=== PATIENT | male | born 1985 | race Caucasian/White ===

== ENCOUNTER 2017-04-17 13:36 | Emergency (ER) | payer OTHER ==
[~2017-04-17] VITALS: Ht 182.9 cm; Wt 140.6 kg
--- NOTE | 2017-04-17 14:06 | ED CARDIAC/CP/PALPITATIONS ---
History of Present Illness General Chief Complaint: Chest Pain Stated Complaint: PER PT "INTERMITTENT CHEST PAIN" Source: patient, old records Exam Limitations: no limitations Vital Signs & Intake/Output Vital Signs & Intake/Output ED Intake and Output 04/18 0000 04/17 1200 Intake Total 0 Output Total Balance 0 Intake, Oral 0 Patient 310 lb Weight Weight Reported by Patient Measurement Method Allergies Coded Allergies: No Known Allergies (04/17/17) Reconcile Medications No Known Home Medications Triage Note: PT TO ED FOR INTERMITTENT CP SINCE SATURDAY, DESCRIBES PAIN "SHARP, SHORT BURSTS OF A BURNING PAIN" PT DESCRIBES PAIN ON THE R SIDE OF HIS CHEST. NO ASSOCIATED SOB OR DIZZINESS. REPORTING HE IS UNABLE TO IDENTIFY IF ANYTHING MAKES PAIN BETTER OR WORSE. Triage Nurses Notes Reviewed? 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 He does not smoke he denies drug use he reports to drinking socially however nothing recently he's been taking Advil however is not sure if it helped. No headache vision changes dyspnea abdominal pain nausea vomiting. No family history of cardiac disease. He does not take any medication on a regular basis no recent immobility. The patient denies any symptoms at this time (HERNÁN RINCON) Past History Travel History Traveled to [place] past 21 day No Medical History Any Pertinent Medical History? none Neurological: NONE EENT: NONE Cardiovascular: NONE Respiratory: NONE Gastrointestinal: NONE Hepatic: NONE Renal: NONE Musculoskeletal: NONE Psychiatric: NONE Endocrine: NONE Blood Disorders: NONE Cancer(s): NONE Surgical History Surgical History: none Psychosocial History What is your primary language Portuguese Tobacco Use: Never used ETOH Use: occasional use Illicit Drug Use: denies illicit drug use Family History Hx Contributory? No (HERNÁN RINCON) Review of Systems Review of Systems Constitutional: Reports: see HPI. All Other Systems: Reviewed and Negative Comments Review of systems: See HPI, All other systems negative. Constitutional, no chills no fever, no malaise HEENT: No visual changes no sore throat no congestion Cardiovascular: chest pain , no palpitation , no orthopnea Skin: no rashes, no change in skin Respiratory: No dyspnea no cough no sputum no hemoptysis GI: No nausea no vomiting, no diarrhea, : No dysuria Muscle skeletal: No joint pain, no back pain, no neck pain, Neurologic:, no headache Psych: No stress Heme/endocrine: No bruising Immunology: No lymphadenopathy (HERNÁN RINCON) Physical Exam Physical Exam General Appearance: well developed/nourished, no apparent distress, alert, awake Cardiovascular: regular rate/rhythm Comments: Well-developed well-nourished person in no acute distress HEENT: Normal EENT exam; PERRL, EOMI, HEAD is atraumatic. moist mucous membranes. Neck: Supple,normal range of motion Back: Nontender, no CVA tenderness. Full range of motion Cardiovascular: Regular rate and rhythms no murmurs rubs Respiratory: Chest nontender.There were no bony deformities, no asymmetry. No respiratory distress. Patient speaking in full complete sentences. Breath sounds clear to auscultation bilaterally: NO W/R/R Abdomen: Soft, nontender nondistended, obese Extremity: No edema, full range of motion of extremitieS Neuro: Alert oriented x3, motor sensory normal. There were no obvious focal neurologic abnormalities. Skin: No appreciable rash on exposed skin, skin is warm and dry. Psych: Mood and affect is normal, memory and judgment is normal. Core Measures ACS in differential dx? Yes Severe Sepsis Present: No Septic Shock Present: No (HERNÁN RINCON) Progress Differential Diagnosis: AMI, aortic dissection, cholecystitis, CHF/pulm edema, costochondritis, musculoskeletal pain, myocarditis, pancreatitis, pericarditis, pneumonia, pneumothorax, PSVT, pulmonary embolism, PVCs/PACs, respiratory failure, unstable angina Initial ED EKG: none (HERNÁN RINCON) Plan of Care: Orders Procedure Date/time Status TROPONIN LEVEL 04/17 1346 Complete COMPREHENSIVE METABOLIC PANEL 04/17 1346 Complete CBC WITHOUT DIFFERENTIAL 04/17 1346 Complete EKG 04/17 1339 Active Laboratory Tests 04/17/17 1351: Anion Gap 9, Estimated GFR > 60, BUN/Creatinine Ratio 16.3, Glucose 73, Calcium 9.2, Total Bilirubin 1.3, AST 27, ALT 39, Alkaline Phosphatase 83, Troponin I < 0.01, Total Protein 6.9, Albumin 4.4, Globulin 2.5, Albumin/Globulin Ratio 1.8, CBC w Diff NO MAN DIFF REQ, RBC 4.73, MCV 89.5, MCH 30.3, RDW 13.1, MPV 8.3, Gran % 59.4, Lymphocytes % 30.9, Monocytes % 6.7, Eosinophils % 2.6, Basophils % 0.4, Absolute Granulocytes 4.3, Absolute Lymphocytes 2.2, Absolute Monocytes 0.5 , Absolute Eosinophils 0.2, Absolute Basophils 0, PUBS MCHC 33.[address] Valle agrees with plan. Patient is resting a symptomatically this time RESTING without any complaints Discussed with patient at length all of his lab results he is been asymptomatic here symptoms have been intermittent in nature for the past 4 days and do not believe he requires a repeat troponin symptoms are Unlikely cardiac in origin discussed complaint of care return precautions he feels comfortable with plan (HERNÁN RINCON) Departure Departure Time of Disposition: 1448 Disposition: HOME OR SELF CARE Condition: Stable Clinical Impression Primary Impression: Atypical chest pain Referrals: SOURAV ADHIKARI,SHAILESH Campa (PCP/Family) Additional Instructions: follow up with your primary care physician. return if your symptos become more persistent, worsening or you have any other concerns Departure Forms: Customer Survey General Discharge Information Prescriptions: Current Visit Scripts No Known Home Medications (HERNÁN RINCON) PA/BUSINESS INTELLIGENCE DIRECTOR Co-Sign Statement Statement: ED Attending supervision documentation- [] I saw and evaluated the patient. I have also reviewed all the pertinent lab results and diagnostic results. I agree with the findings and the plan of care as documented in the PA's/BUSINESS INTELLIGENCE DIRECTOR's documentation. [X] I have reviewed the ED Record and agree with the PA's/BUSINESS INTELLIGENCE DIRECTOR's documentation. [] Additions or exceptions (if any) to the PAs/BUSINESS INTELLIGENCE DIRECTOR's note and plan are summarized below: [] (EVE ADHIKARI,ARRON) Critical Care Note Critical Care Note Critical Care Time: non-applicable (HERNÁN RINCON)
[2017-04-17 14:08] LABS: ABSOLUTE BASOPHIL COUNT 0 /CUMM (0.0-0.2); ABSOLUTE EOSINOPHIL COUNT 0.2 /CUMM (0.0-0.7); ABSOLUTE GRANULOCYTE CT 4.3 /CUMM (1.4-6.5); ABSOLUTE LYMPH COUNT 2.2 /CUMM (1.2-3.4); ABSOLUTE MONOCYTE COUNT 0.5 /CUMM (0.10-0.60); BASOPHIL % 0.4 % (0.0-2.0); EOSINOPHIL % 2.6 % (0-5); GRANULOCYTE % 59.4 % (42.2-75.2); HEMATOCRIT 42.4 % (42-52); MEAN CORPUSCULAR HGB 30.3 PG (27.0-31.0); MEAN CORPUSCULAR HGB CONC 33.8 G/DL (33.0-37.0); MEAN CORPUSCULAR VOLUME 89.5 FL (80.0-94.0); MEAN PLATELET VOLUME 8.3 FL (7.4-10.4); PLATELET COUNT 189 /CUMM (130-400); RBC DISTRIBUTION WIDTH 13.1 % (11.5-14.5); RED BLOOD CELL CT 4.73 /CUMM (4.70-6.10); WHITE BLOOD CELL COUNT 7.2 /CUMM (4.8-10.8)
[2017-04-17 14:55] VITALS: BP 123/76
== END 2017-04-17 14:58 ==
LOC: ERH 13:36
PROVIDERS: Physician Assistant Medical
DX: R07.89 Other chest pain (principal)
CPT/HCPCS: 93005; 93010